=== PATIENT | male | born 1955 ===

== ENCOUNTER → 2020-07-26 20:07 | Outpatient (CLI) | payer MEDICARE ==
[2020-07-26 20:40] LABS: BACTERIA FEW HPF (<MOD); BILIRUBIN NEGATIVE (NEGATIVE); KETONE NEGATIVE mg/dL (< 1+); NITRITE POSITIVE (NEGATIVE); PH 5.5 (5.0-8.0); UROBILINOGEN NORMAL mg/dL (< 2); WHITE CELLS - URINE 62 HPF (0-1)
== END | disposition home or self-care (01) ==
LOC: D.LABREF 20:07
PROVIDERS: ATTEND Family Medicine
DX: F05 Delirium due to known physiological condition (principal)